=== PATIENT | male | born 1955 | race Caucasian/White ===

== ENCOUNTER → 2018-03-01 | Outpatient (CLI) | payer BC ==
[~2018-03-01] MED LIST: ASPIR-LOW81 MG PO; FISH OIL1 IU PO; FLAXSEED OIL1 CAP PO; JANUMET 500 MG-1 TA1; LIPITOR 10MG10 MG PO; LIPITOR20 MG; MINOCYCLIN100 MG/CAP; MINOCYCLINE PO; NORCO 325 MG-51 TAB PO; TENORETIC 50 501 TAB PO; ZOFRAN 4MG T4 MG/TAB PO
[2018-03-01 14:49] LABS: URINE PROTEIN:CREAT RATIO 0.04 (0.00-0.14)
== END ==
LOC: COL.LAB 08:55
PROVIDERS: Family Medicine
DX: E11.9 Type 2 diabetes mellitus without complications (principal)

== ENCOUNTER → 2019-10-31 | Outpatient (CLI) | payer OTHER | LOC: COL.RAD 13:17 | DX: H70.11 Chronic mastoiditis, right ear (principal) ==

== ENCOUNTER 2021-03-01 08:49 | Outpatient (RCR) | payer OTHER | END 2021-05-30 | disposition home or self-care (01) | LOC: WSST | DX: R13.13 Dysphagia, pharyngeal phase (principal); E11.9 Type 2 diabetes mellitus without complications; Z79.84 Long term (current) use of oral hypoglycemic drugs; Z79.82 Long term (current) use of aspirin; G47.33 Obstructive sleep apnea (adult) (pediatric); G47.00 Insomnia, unspecified ==

== ENCOUNTER → 2021-07-21 | Outpatient (CLI) | payer OTHER ==
[2021-07-21 14:23] LABS: COLLECTION METHOD CLEAN CATCH
[2021-07-21 14:27] LABS: BASO # 0.1 (0.0-0.2); BASO % 0.6 % (0.0-2.0); EOS # 0.1 (0.0-0.7); EOS % 1.5 % (0-4.0); GRAN % 62.6 % (42.2-75.2); HEMATOCRIT 38.3 % (42.0-52.0); HEMOGLOBIN 12.8 g/dl (13.5-18.0); LYMPH # 2.3 (1.2-3.4); LYMPH % 28.9 % (20.0-51.0); MEAN CELL VOLUME 79 fl (80.0-100.0); MEAN CORPUSCULAR HEMOGLOBIN 26 pg (27.0-31.0); MEAN CORPUSCULAR HGB CONC 33 g/dl (33.0-37.0); MEAN PLATELET VOLUME 9.7 fl (7.4-10.4); MONO # 0.5 (0.1-0.6); MONO % 6.2 % (1.7-9.3); PLATELET COUNT 292 K/mm3 (130-400); RED BLOOD COUNT 4.85 M/mm3 (4.20-5.60); REDCELL DISTRIBUTION WIDTH-CV 14.6 % (11.5-14.5)
[2021-07-21 14:32] LABS: MUCOUS Present /lpf; PH 6 (5-8); SQUAMOUS EPITHELIAL 0-2 /hpf; URINE APPEARANCE Clear; URINE BACTERIA None Seen /hpf; URINE BILIRUBIN Negative (NEGATIVE); URINE BLOOD Negative (NEGATIVE); URINE COLOR Yellow; URINE GLUCOSE Negative (NEGATIVE); URINE KETONE Negative (NEGATIVE); URINE LEUKOCYTE ESTERASE Negative (NEGATIVE); URINE NITRATE Negative (NEGATIVE); URINE PROTEIN(semi-quant) Negative (NEGATIVE); URINE RBC None Seen /hpf; URINE UROBILINOGEN Negative (NEGATIVE)
[2021-07-21 14:55] LABS: ALBUMIN 4.6 gm/dL (3.5-5.0); BILIRUBIN,TOTAL 1.8 mg/dL (0.0-1.0); CALCIUM 9.6 mg/dL (8.4-10.2); CHOLESTEROL RISK RATIO 3.1; CREATININE, serum 1.16 (0.66-1.25); POTASSIUM 4.5 mmol/L (3.4-5.0); TOTAL PROTEIN 7.6 gm/dL (6.4-8.2)
[2021-07-21 15:43] LABS: THYROID STIMULATING HORMONE 2.161 uIU/mL (0.350-4.940)
[2021-07-21 23:41] LABS: URINE MICROALBUMIN 0.7 mg/dL (0.0-1.7)
== END ==
LOC: COL.LAB 13:32
PROVIDERS: Family Medicine
DX: Z00.00 Encounter for general adult medical examination without abnormal findings (principal); Z13.29 Encounter for screening for other suspected endocrine disorder; Z13.220 Encounter for screening for lipoid disorders

== ENCOUNTER → 2021-07-29 | Outpatient (CLI) | payer OTHER | LOC: COL.RAD 09:24 | DX: M47.814 Spondylosis without myelopathy or radiculopathy, thoracic region (principal) ==

== ENCOUNTER → 2021-08-31 | Outpatient (CLI) | payer OTHER, MEDICARE | LOC: COL.RAD 15:03 | DX: R13.13 Dysphagia, pharyngeal phase (principal) ==

== ENCOUNTER → 2021-11-01 | Outpatient (CLI) | payer OTHER, MEDICARE | LOC: COL.LAB 10:35 | DX: E11.69 Type 2 diabetes mellitus with other specified complication (principal) ==

== ENCOUNTER → 2022-06-03 | Outpatient (CLI) | payer MEDICARE | LOC: COL.RAD 12:32 | DX: I65.29 Occlusion and stenosis of unspecified carotid artery (principal); I95.1 Orthostatic hypotension | CPT/HCPCS: Q9967 ==

== ENCOUNTER 2022-07-14 06:00 | Day surgery (SDC) | payer MEDICARE ==
[~2022-07-14] VITALS: Ht 185.4 cm; Wt 120.4 kg
[2022-07-14 06:25] VITALS: BP 134/93; PULSE 72; TEMP 96.6
[2022-07-14] MEDS ORDERED: PRINIVIL10 MG PO (06:54)
[2022-07-14] MEDS ORDERED: PRIL40 PO (06:55)
[2022-07-14] MEDS ORDERED: LIPITOR 40MG TA40 MG PO (06:55)
[2022-07-14] MEDS ORDERED: FLOMAX 0.40.4 MG/CAP PO (06:56)
[2022-07-14] MEDS ORDERED: FERROUSAL325 MG PO (06:56)
[2022-07-14] MEDS ORDERED: DIABETA 5MG5 MG/TAB PO (06:57)
[2022-07-14] MEDS ORDERED: GLUCOPHAGE1000 MG PO (06:58)
[2022-07-14] MEDS ORDERED: EPA FISH OIL1 SGL PO (06:58)
[2022-07-14] MEDS ORDERED: MELATONIN5 M1 SL (06:59)
[2022-07-14] MEDS ORDERED: ASPIRIN 81M81 MG/TA2 PO (06:59)
[2022-07-14 07:40] VITALS: BP 123/74; PULSE 88
--- NOTE | 2022-07-14 07:40 | NUR ---
PATIENT RETURNS TO BAY 2 PER CART AFTER HAVING COLONOSCOPY. AROUSES EASILY. IV FLUIDS INFUSING. AMBULATORY TO RECLINER WITH TWO PERSON ASSIST. VVS. TEMP 97.7. CALL LIGHT IN REACH. SPOUSE IN ROOM. RECLINED FOR COMFORT AND ALLOWED TO REST.
[2022-07-14 07:55] VITALS: BP 123/83; PULSE 81
--- NOTE | 2022-07-14 07:55 | NUR ---
MORE AWAKE AND ALERT. SIPPING ON GRAPE JUICE AND EATING TOAST. DENIES NAUSEA OR ABDOMINAL PAIN. DR. ASHBY TALKED WITH SPOUSE AND ALL QUESTIONS ANSWERED PRIOR TO PATIENT RETURNING TO ROOM.
[2022-07-14 08:10] VITALS: BP 106/71; PULSE 88
--- NOTE | 2022-07-14 08:10 | NUR ---
SITTING UP EATNG SNACK AND DRINKING WITHOUT COMPLAINTS.
[2022-07-14 08:20] VITALS: BP 138/75; PULSE 82
--- NOTE | 2022-07-14 08:20 | NUR ---
IV DISCONTINUED AND PATIENT DRESSES SELF. SPOUSE IN ROOM. TOLERATES ACTIVITY WELL.
--- NOTE | 2022-07-14 08:33 | NUR ---
GIVEN DISMISSAL INSTRUCTIONS AND VOICES UNDERSTANDING OF THESE AND FOLLOW UP NEEDED. PROVIDED OFFICE NUMBER FOR ANY QUESTIONS OR CONCERNS.
--- NOTE | 2022-07-14 08:35 | NUR ---
PATIENT DISMISSED TO HOME DRIVEN BY SPOUSE PER PRIVATE VEHICLE WITH INSTRUCTIONS IN HAND. WAS TAKEN TO VEHICLE PER WHEELCHAIR AND ASSISTED INTO CAR.
== END 2022-07-14 08:35 | disposition home or self-care (01) ==
LOC: SDCO 06:00
DX: Z12.11 Encounter for screening for malignant neoplasm of colon (principal); D12.5 Benign neoplasm of sigmoid colon
CPT/HCPCS: J2704; J7030

== ENCOUNTER → 2023-01-03 | Outpatient (CLI) | payer MEDICARE ==
[~2023-01-03] MED LIST changes: +ASPIRIN 81M81 MG/TA2 PO; +DIABETA 5MG5 MG/TAB PO; +EPA FISH OIL1 SGL PO; +FERROUSAL325 MG PO; +FLOMAX 0.40.4 MG/CAP PO; +GLUCOPHAGE1000 MG PO; +LIPITOR 40MG TA40 MG PO; +MELATONIN5 M1 SL; +PRIL40 PO; +PRINIVIL10 MG PO
== END ==
LOC: COL.RAD 09:17
DX: R74.8 Abnormal levels of other serum enzymes (principal); K76.0 Fatty (change of) liver, not elsewhere classified